=== PATIENT | female | born 2000 | race Caucasian/White ===

== ENCOUNTER 2018-01-22 22:11 | Emergency (ER) | payer OTHER ==
--- NOTE | 2018-01-22 22:20 | EDPHY ---
H & P Stated Complaint: allergic reaction poss to soy milk, armpit swelling Time Seen by Provider: 01/22/18 22:19 HPI/ROS: HPI: This is a 17-year-old female who presents with Chief Complaint: allergic reaction poss to soy milk, armpit swelling Location: Bilateral armpits Quality: Redness and irritation Duration: 1 day Signs and Symptoms: No wheezing, no shortness of breath, no rash, no discharge , no warmth, + pain Timing: Acute Severity: Moderate Context: Patient is a student at [employer], presents with 1 day history of bilateral armpit redness and irritation. She reports that she shave her armpits this morning with a new razor. She has been using the same deodorant for the last several years. She drinks soy milk 2 days ago for the 1st time in a long time and believes that this could be an allergic reaction. Patient denies any wheezing, rashes, shortness of breath, tongue swelling, difficulty swallowing. Denies any new lotions, detergents, perfumes. Modifying Factors: She has tried nothing for the symptoms Comment: ROS: A comprehensive 10 system review of systems is otherwise negative aside from elements mentioned in the history of present illness. MEDICAL/SURGICAL/SOCIAL HISTORY: Medical history: Eczema. Does not take any regular medications. LMP 2-3 weeks ago. Surgical history: Denies Social history: Never smoked. CONSTITUTIONAL: Polite and cooperative young adult white female, awake and alert, no obvious distress HEENT: Atraumatic and normocephalic, PERRL, EOMI. Nares patent; no rhinorrhea; no nasal mucosal edema. Tympanic membranes clear. Oropharynx clear, no exudate and moist pink mucosa. Airway patent. No lymphadenopathy. No meningismus. Cardiovascular: Normal S1/S2, regular rate, regular rhythm, without murmur rub or gallop. PULMONARY/CHEST: Symmetrical and nontender. Clear to auscultation bilaterally. Good air movement. No accessory muscle usage. ABDOMEN: Soft, nondistended, nontender, no rebound, no guarding, no peritoneal signs, no masses or organomegaly. No CVAT. EXTREMITIES: 2/2 pulses, strength 5/5, no deformities, no clubbing, no cyanosis or edema. NEUROLOGICAL: no focal neuro deficits. GCS 15. SKIN: Warm and dry, mild erythema and bilateral axillary areas; no fluctuance; no discharge; no vesicles. Good capillary refill. Source: Patient Exam Limitations: No limitations - Personal History LMP (Females 10-55): 22-28 Days Ago Current Tetanus Diphtheria and Acellular Pertussis (TDAP): Yes - Medical/Surgical History Hx Asthma: No Hx Chronic Respiratory Disease: No Hx Diabetes: No Hx Cardiac Disease: No Hx Renal Disease: No Hx Cirrhosis: No Hx Alcoholism: No Hx HIV/AIDS: No Hx Splenectomy or Spleen Trauma: No Other PMH: Ezcema - Social History Smoking Status: Never smoked Constitutional: Initial Vital Signs Temperature (C) 36.8 C 01/22/18 22:14 Heart Rate 69 01/22/18 22:14 Respiratory Rate 18 01/22/18 22:14 Blood Pressure 102/64 01/22/18 22:14 O2 Sat (%) 96 01/22/18 22:14 O2 Delivery Mode Room Air Allergies/Adverse Reactions: soy Allergy (Verified 01/22/18 22:13) Home Medications: Medication Instructions Recorded predniSONE [predniSONE TAPER] 10 mg PO DAILY 6 Days ea 01/22/18 Medical Decision Making ED Course/Re-evaluation: Vital signs reviewed and stable upon arrival. Deodorant wiped off and let topical applied. Given prednisone 60 mg, Benadryl 50 mg Patient has no signs of anaphylaxis/respiratory distress/abscess She will be treated outpatient with Benadryl and prednisone taper This patient was seen under the supervision of my secondary supervising physician. I evaluated care for this patient independently. Discussed this patient with Dr. Melendrez. Differential Diagnosis: Differential diagnosis includes but is not limited to allergic contact dermatitis, anaphylaxis, allergic reaction, cellulitis. Departure - Departure Disposition: Home, Routine, Self-Care Clinical Impression: Allergic contact dermatitis Qualifiers: Contact dermatitis trigger: unspecified trigger Qualified Code(s): L23.9 - Allergic contact dermatitis, unspecified cause Condition: Good Instructions: Dermatitis (ED) Additional Instructions: Please refrain from shaving and do not use deodorant until all symptoms are resolved. Take prednisone taper as directed. Take Benadryl 25-50 mg every 4-6 hours as needed for allergic reaction. Take Tylenol 650 mg every 4 hours and/or Ibuprofen 600 mg every 8 hours with food as needed for pain. Return to the ER immediately if you experience redness, red streaks, have fevers /chills, flu like symptoms, limited range of motion, or any other symptoms that concern you. Referrals: Saira Sanchez MD [Primary Care Provider] - 5-7 days, if not improved Prescriptions: predniSONE [predniSONE TAPER] 10 mg PO DAILY 6 Days ea
[2018-01-22] MEDS ORDERED: predniSONE 20 MG TAB PO ONE (22:22)
[2018-01-22] MEDS ORDERED: LET GEL TOPICAL 1 EA SYR TP ONE ×2 (22:22→22:24)
[2018-01-22] MEDS ORDERED: diphenhydrAMINE 25 MG CAP PO ONE (22:22)
[2018-01-22] MEDS ORDERED: predniSONE 20 MG TAB ONE (22:23)
[2018-01-22] MEDS ORDERED: diphenhydrAMINE 50 MG CAP PO ONE (22:24)
[2018-01-22 23:45] VITALS: BP 110/76
== END 2018-01-22 23:45 | disposition home or self-care (01) ==
DX: L23.9 Allergic contact dermatitis, unspecified cause (principal)
CPT/HCPCS: J7512